=== PATIENT | male | born 1955 | race Caucasian/White ===

== ENCOUNTER 2016-06-20 01:48 | Inpatient (IN) | payer OTHER ==
[~2016-06-20] VITALS: Ht 182.9 cm; Wt 91.6 kg
[~2016-06-20 01:48] MED LIST: LISINOPRIL10 M1 PO
--- NOTE | 2016-06-20 10:07 | Admission Core Measures ---
Admission Meds I reviewed the following Meds: Current Medications Sig/Marixa Start time Last Medication Dose Stop Time Status Admin Acetaminophen 975 MG ONCE 06/20 NR (Tylenol) 06/20 2358 Cefazolin Sodium 2,000 MG ONCE 06/20 NR (Kefzol-Ancef Inj) 06/20 2358 Oxycodone HCl 10 MG ONCE 06/20 NR (Roxicodone) 06/20 2358 Acute Coronary Syndrome Inclusion Criteria ACS Diagnosis No Inpatient Core Measures LDL Reminder: If No, please order W/I first 24hr of stay Congestive Heart Failure Inclusion Criteria CHF Diagnosis No Cerebrovascular accident Inclusion Criteria CVA/TIA Diagnosis No Inpatient Core Measures Bedside Swallow Eval Reminder: If BSE failed, place ST order Antithrombotic Reminder: Order Antithrombotic Medication by end of day 2 Antithrombotic Reminder: Document Reason Antithrombotic Not ordered by end of day 2 AFIB/Flutter Reminder: If Present, add to problem list AFIB/Flutter Reminder: Order Anticoag Medication for pts with AFIB/Flutter Atherosclerosis Reminder: If Present, add to problem list LDL Reminder: If No, please order W/I first 24hr of stay PT Order Reminder: If No, please order Venous thromboembolism Inpatient Core Measures VTE Risk Factors: Age > 40, Surgery No [facility] VTE prophylaxis d/t No contraindications No VTE Pharm Prophylaxis d/t No contraindications Inclusion Criteria - Per Current guidelines, there needs to be overlap - treatment for the first 5 days of Warfarin therapy. - Parenteral Anticoagulation (IV or SC) needs to be - given along with Warfarin therapy. VTE Diagnosis No VTE Type NONE VTE Confirmed by (Test) NONE Problem List As ranked by this Provider includes Assessment & Plan 1. Status post total hip replacement, left HOME MEDS Home Med List Lisinopril 10 MG TABLET 1 TAB PO DAILY HTN (Reported)
[2016-06-20] MEDS ORDERED: DILAUDID2 M1 PO (10:41)
[2016-06-20] MEDS ORDERED: COLACE100 M1 PO (10:41)
[2016-06-20] MEDS ORDERED: MS CONTIN15 M2 PO (10:41)
[2016-06-20] MEDS ORDERED: MIRALAX17 G1 PO (10:41)
[2016-06-20] MEDS ORDERED: ASPIRIN EC325 M2 PO (10:41)
--- NOTE | 2016-06-20 10:51 | RADIOLOGY REPORT ---
EXAMINATION: XR HIP, LEFT CLINICAL INFORMATION: Status post hip arthroplasty COMPARISON: None TECHNIQUE: Two views of the left hip. FINDINGS: Recent left total hip arthroplasty. Intact hardware. Prosthesis is in place. No evidence of periprosthetic abnormal lucency. Visualized osseous structures are intact. Lucency within the soft tissues compatible with recent postoperative change. IMPRESSION: Recent left hip arthroplasty.
--- NOTE | 2016-06-20 12:22 | Patient Discharge Instructions ---
Discharge Instructions General Discharge Information You were seen/treated for: L hip DJD/osteoarthritis You had these procedures: Left total hip arthroplasty Watch for these problems: Fever greater than 101, excessive drainage from the wound, and inability to bear weight on the operative site Do not soak the wound: Yes Daily wet to dry dressings: No No bath, but you may shower: Yes Other wound care: Dry dressing change once daily starting postoperative day #2. You may shower as desired. No baths. No ointments of any kind. Ice as needed for comfort. Diet Continue normal diet: Yes Recommended Diet: Heart Healthy Activity Full Activity/No Limits: No Activity Self Limited: Yes Pounds, do NOT lift more than: 5 Activity Limited to: Weight bear as tolerated Other activity limits: Avoid strenuous activity. You may ambulate as desired with rolling walker and progressed per PT recommendations. No driving while using narcotics and until cleared by M.DChidi Acute Coronary Syndrome Inclusion Criteria At DC or during hospital stay patient has or had the following: ACS DIAGNOSIS No Discharge Core Measures Meds if any: Prescribed or Continued at Discharge Meds if any: NOT Prescribed or Continued at Discharge Congestive Heart Failure Inclusion Criteria At DC or during hospital stay patient has or had the following: CHF DIAGNOSIS No Discharge Core Measures Meds if any: Prescribed or Continued at Discharge Meds if any: NOT Prescribed or Continued at Discharge Cerebrovascular accident Inclusion Criteria At DC or during hospital stay patient has or had the following: CVA/TIA Diagnosis No Discharge Core Measures Meds if any: Prescribed or Continued at Discharge Meds if any: NOT Prescribed or Continued at Discharge Venous thromboembolism Inclusion Criteria VTE Diagnosis No VTE Type NONE VTE Confirmed by (Test) NONE Discharge Core Measures - Per Current guidelines, there needs to be overlap - treatment for the first 5 days of Warfarin therapy. - If discharged on Warfarin prior to 5 days of - overlap therapy, the patient will need to be - assessed for post discharge needs including - *Post discharge parental anticoagulation - *Warfarin and/or parental anticoagulation education - *Follow up date to check INR post discharge At least 5 days overlap therapy as Inpatient No Meds if any: Prescribed or Continued at Discharge Note: Overlap Therapy is Warfarin and Anticoagulant Meds if any: NOT Prescribed or Continued at Discharge
--- NOTE | 2016-06-20 12:23 | Surg Short-stay <48hrs Dis Sum ---
Visit Information Visit Dates Admission Date: 06/20/16 Discharge Date: 06/20/2016 Surgical Short Stay DC Summary Admission Diagnosis: Left hip DJD/osteoarthritis Final Diagnosis: Same Procedure(s): Left anterior total hip arthroplasty on 06/20/2016 Summary/Significant Findings: Patient was admitted to [facility] for elective surgery on 06/20/2016 and underwent left total hip replacement. The patient tolerated the procedure well, without complications. The postoperative course remained uneventful. Pain was well controlled with oral pain medication, he tolerated a regular diet, and voided without difficulty. The patient was evaluated by physical therapy during admission, was deemed stable from a medical standpoint, and was discharged to home the same day. Condition at Discharge: Stable Discharge Disposition: home health services Discharge instructions provided to patient/family: Yes Post discharge follow-up plan: Incision: Dry dressing. May shower. No baths. No ointments of any kind. Ice as needed. Bowel regimen: Colace and or MiraLAX Weight-bearing as tolerated Follow-up with Dr. Hudson in 6 weeks. Call office for fevers greater than 101.5, excessive drainage or inability to bear weight on operative extremity. Visiting nurse will remove luh.
[2016-06-20 12:27] VITALS: BP 108/68
--- NOTE | 2016-06-20 14:18 | PN- Orthopedic ---
Subjective Subjective: POST-OP NOTE: Reports pain controlled. Seen by PT and cleared for home today. Tolerated lunch. No nausea. Nursing reports he voided 300 mls. He is eager for discharge home this afternoon. Objective Vital Signs and I&Os Vital Signs Date Time Temp Pulse Resp B/P B/P Pulse O2 O2 Flow FiO2 Mean Ox Delivery Rate 06/20 1415 Room Air 06/20 1227 97.6 55 18 108/68 96 Room Air 06/20 1225 55 108/68 Intake & Output 06/20 1600 06/20 0800 06/20 0000 06/19 1600 06/19 0800 06/19 0000 Intake Total Output Total Balance Patient 202 lb Weight Weight Reported by Patient Measurement Method Physical Exam: General - alert & oriented x 3. comfortable. no acute distress. Lungs - clear bilaterally. no w/r/r. Cardiac - s1s2. reg. Abdomen - soft. nontender. Extremities - warm bilaterally. left hip dressing c/c/i. no hematoma. no drains. nvi. calves soft and nontender b/l. Current Medications: Current Medications Sig/Marixa Start time Last Medication Dose Route Stop Time Status Admin Acetaminophen 650 MG Q4P PRN 06/20 1200 AC PO Acetaminophen 975 MG ONCE 06/20 0000 DC PO 06/20 2359 Aspirin 325 MG BID 06/20 1000 AC PO Cefazolin Sodium 2 GM Q8H 06/20 1600 CAN IV 06/21 0001 Cefazolin Sodium 2 GM IQ8 06/20 1600 AC N/A 1 UNIT IV 06/21 0029 Cefazolin Sodium 2,000 MG ONCE 06/20 0000 DC IV 06/20 2359 Dextrose/Sodium 1,000 ML .[id number] 06/20 1200 AC 06/20 Chloride IV 1226 Docusate Sodium 100 MG BID 06/20 1002 AC PO Hydromorphone HCl 2 MG Q4P PRN 06/20 1200 AC PO Hydromorphone HCl 4 MG Q4P PRN 06/20 1200 AC PO Lisinopril 10 MG DAILY 06/20 1000 AC PO Morphine Sulfate 2 MG Q3P PRN 06/20 1200 AC IV Ondansetron HCl 4 MG Q6P PRN 06/20 1200 AC IV Oxycodone HCl 10 MG ONCE 06/20 0000 DC PO 06/20 2359 Patient Medication 1 UNIT 1600 06/20 1600 AC Teaching ED 06/20 1601 Patient Medication 1 ED .STK-MED ONE 06/20 1353 SD Teaching ED 06/20 1354 Patient Medication 1 UNIT ONE NR 06/20 [address] [facility] ED 06/20 1815 Patient Medication 1 UNIT ONE NR 06/20 [address] [facility] ED 06/20 1800 Polyethylene Glycol 17 GM DAILY 06/20 1002 PO Assessment/Plan Assessment/Plan This 61 year old white male is POD#0 s/p left total hip replacement, anterior approach tolerating diet pain controlled cleared by PT for home voided without difficulty asa twice daily maurice-operative ancef d/c home will d/w Core Measures/Miscellaneous Venous Thromboembolism VTE Risk Factors: Age > 40, Surgery VTE Contraindications: No Contraindications VTE Diagnosis: No VTE Type: NONE VTE Confirmed by (Test): NONE Beta Fiordaliza Is Beta Fiordaliza a Home Med? No Antibiotics Is Patient on Antibiotics? Yes If Yes: prophylaxis
--- NOTE | 2016-06-20 17:08 | Operative Report ---
Operative/Inv Procedure Report Surgery Date: 06/20/16 Name of Procedure: Left total hip replacement Pre-Operative Diagnosis: Primary left hip DJD Post-Operative Diagnosis: Same Estimated Blood Loss: 250 Surgeon/Multiple Games Dealer: FELICITY JIMENEZ,RISHI Young Anesthesia: block Operative/Procedure Note Note: Description of Procedure: The patient was taken to the operating room and positively identified. After induction of spinal anesthesia and administration of appropriate pre-operative antibiotics, the patient was positioned supine on the operating room table and all bony prominences were well padded. After performing a surgical timeout, the left lower extremity was prepped and draped in the usual sterile fashion. A direct anterior approach was made to the left hip. The incision was carried sharply through superficial soft tissues to the level of the fascia. Meticulous hemostasis was maintained with Bovie electocautery. The fascia over the tensor fascia angelo muscle was opened sharply and the interval between the TFL and the sartorius was entered bluntly taking care to stay lateral to the lateral femoral cutaneous nerve. Retractors were placed around the femoral neck and the pericapsular fat was identified. The ascending branches of the lateral femoral circumflex vessels were identified and carefully coagulated. The pericapsular fat and anterior capsule were then resected. A napkin ring osteotomy was performed and the femoral head was removed without difficulty. Attention was then turned to the acetabulum. After appropriate placement of retractors, the acetabulum was exposed. Soft tissue was cleaned from the acetabular margin and notch. Overhanging osteophytes were removed and the teardrop was exposed. The acetabulum was then sequentially reamed to accept a 58 mm [employer] Tritanium hemispherical solid back shell. This was impacted into place in the appropriate position and fitted with a 36 mm Trident X3 zero degree polyethylene insert. Attention was then turned to the femur. After performing the appropriate ligament releases, the proximal femur was exposed. It was then sequentially broached to accept a size 6 [employer] Anato stem. This was trialed for leg length and stability. The trial component was removed and the final component was impacted into place. The trunnion was carefully cleaned and fit with a 36 mm, + 0 Biolox delta ceramic femoral head. The hip was reduced and put through a full range of motion and found to be stable. The articular space was then irrigated with sterile saline. The periarticular soft tissues were infilitrated with Marcaine. The fascial layer was closed with interrupted #1 vicryl suture and the skin was re-approximated with interrupted 2 -0 vicryl. The skin was closed with a running 3-0 V-Lock suture. Steri-strips and a sterile dressing were applied. The patient was awakened and taken to the recovery room in satisfactory condition.
== END 2016-06-20 15:08 | disposition home health service (06) | DRG 470 ==
LOC: SDA 01:48 → ENRESERV 09:59 → 2NA 11:42
PROVIDERS: ADMIT Orthopaedic Surgery
PROC: 0SRB04A Replacement of Left Hip Joint with Ceramic on Polyethylene Synthetic Substitute, Uncemented, Open Approach (ICD-10-PCS; principal; 2016-06-20)
DX: M16.12 Unilateral primary osteoarthritis, left hip (principal); I10 Essential (primary) hypertension; K21.9 Gastro-esophageal reflux disease without esophagitis; M47.22 Other spondylosis with radiculopathy, cervical region
CPT/HCPCS: 2NASP; 73502-LT; 88304; 97110-GO; 97116-GO; 97161-GP; 97530-GO; J0690; J0735; J2405; J7042